=== PATIENT | female | born 1985 | race African-American/Black ===

== ENCOUNTER → 2024-11-25 | Outpatient (CLI) | payer OTHER | LOC: M PLAIMG 07:46 | PROVIDERS: ATTEND Physician Assistant | DX: M25.561 Pain in right knee (principal); M25.562 Pain in left knee ==

== ENCOUNTER 2025-02-04 17:01 | Emergency (ER) | payer OTHER ==
[~2025-02-04] VITALS: Ht 180.3 cm; Wt 86.2 kg
[2025-02-04] MEDS ORDERED: SERT50TA29 (17:10)
[2025-02-04] MEDS ORDERED: HYDR-3363 (17:10)
[2025-02-05 00:25] VITALS: BP 125/56; TEMP 96.8; O2SAT 100
== END 2025-02-05 00:31 | disposition home or self-care (01) ==
LOC: M ED 17:01
DX: F43.0 Acute stress reaction (principal); F43.10 Post-traumatic stress disorder, unspecified; Z88.6 Allergy status to analgesic agent; Z79.899 Other long term (current) drug therapy